=== PATIENT | male | born 1975 | race Caucasian/White ===

== ENCOUNTER → 2018-11-25 | Emergency (ER) | payer MEDICAID ==
[2018-11-25] MEDS: SOD CHLORIDE 0.9% 1,000 ML IV (08:29)
[2018-11-25] MEDS: KETOROLAC 30 MG INJ IV (08:29)
[2018-11-25] MEDS: ONDANSETRON 4 MG INJ IV (08:29)
== END | disposition home or self-care (01) ==
LOC: FTE 07:57
DX: R51 Headache (principal); R11.2 Nausea with vomiting, unspecified
CPT/HCPCS: 96361; 96374; 96375; 99284-25